=== PATIENT | male | born 1980 | race Caucasian/White ===

== ENCOUNTER → 2017-09-03 09:41 | Outpatient (CLI) | payer OTHER, SELFPAY ==
[2017-09-03 12:29] LABS: ALB/GLOB Ratio 0.9 RATIO (0.9-2.4); AST(SGOT) 13 U/L (15-37); Alanine Aminotransfer ALT/SGPT 42 U/L (16-61); Albumin, Serum 3.6 g/dL (3.2-5.0); Alkaline Phosphatase 89 U/L (45-117); Anion Gap 8 (5-15); BUN 16 mg/dL (7-18); BUN/Creat Ratio 15.7 RATIO (10-20); Calcium,Total 9.1 mg/dL (8.5-10.1); Chloride 100 mmol/L (98-107); Cholesterol 106 mg/dL (200); Creatinine, Serum 1.02 mg/dL (0.70-1.30); EST Glomerular Filtration Rate 87 mL/min (>60); Est Glom Filt Rate - Afr Amer 105 mL/min (>60); Globulin 3.9 g/dL (2.2-4.2); Glucose 157 mg/dL (74-106); High Density Lipoprotein 41 mg/dL; Potassium 4.4 mmol/L (3.5-5.1); Protein, Total 7.5 g/dL (6.4-8.2); Sodium Level 138 mmol/L (136-145); Thyroid Stim Hormone (TSH) 0.45 uIU/mL (0.358-3.74); Triglycerides 90 mg/dL; Very Low Density Lipoprotein 18 mg/dL (5-40)
== END ==
PROVIDERS: Family Provider Family Medicine; PCP Family Medicine; Visit Provider Family Medicine
DX: E11.9 Type 2 diabetes mellitus without complications (principal)
CPT/HCPCS: 36415; 80053; 80061; 84403; 84443

== ENCOUNTER → 2018-03-18 09:38 | Outpatient (CLI) | payer OTHER, SELFPAY ==
[2018-03-18 12:04] LABS: AST(SGOT) 13 U/L (15-37); Alanine Aminotransfer ALT/SGPT 42 U/L (16-61); Albumin, Serum 3.7 g/dL (3.2-5.0); Alkaline Phosphatase 93 U/L (45-117); Anion Gap 11 (5-15); BUN 15 mg/dL (7-18); Chloride 99 mmol/L (98-107); Cholesterol 120 mg/dL (200); EST Glomerular Filtration Rate 89 mL/min (>60); Est Glom Filt Rate - Afr Amer 107 mL/min (>60); Globulin 3.7 g/dL (2.2-4.2); Glucose 174 mg/dL (74-106); High Density Lipoprotein 41 mg/dL; Potassium 4.1 mmol/L (3.5-5.1); Protein, Total 7.4 g/dL (6.4-8.2); Sodium Level 137 mmol/L (136-145); Triglycerides 111 mg/dL; Very Low Density Lipoprotein 22 mg/dL (5-40)
== END ==
PROVIDERS: Family Provider Family Medicine; PCP Family Medicine; Visit Provider Family Medicine
DX: E11.9 Type 2 diabetes mellitus without complications (principal)
CPT/HCPCS: 36415; 80053; 80061

== ENCOUNTER → 2018-11-13 | Outpatient (CLI) | payer OTHER, SELFPAY ==
[2018-11-13 12:54] LABS: AST(SGOT) 10 U/L (15-37); Alanine Aminotransfer ALT/SGPT 38 U/L (16-61); Albumin, Serum 3.9 g/dL (3.2-5.0); Alkaline Phosphatase 84 U/L (45-117); Anion Gap 3 (5-15); BUN 13 mg/dL (7-18); BUN/Creat Ratio 12.5 RATIO (10-20); Calcium,Total 9.1 mg/dL (8.5-10.1); Chloride 103 mmol/L (98-107); Creatinine, Serum 1.04 mg/dL (0.70-1.30); EST Glomerular Filtration Rate 84 mL/min (>60); Est Glom Filt Rate - Afr Amer 102 mL/min (>60); Globulin 3.8 g/dL (2.2-4.2); Glucose 126 mg/dL (74-106); Potassium 4.1 mmol/L (3.5-5.1); Protein, Total 7.7 g/dL (6.4-8.2); Sodium Level 139 mmol/L (136-145); Thyroid Stim Hormone (TSH) 0.69 uIU/mL (0.358-3.74)
== END | disposition home or self-care (01) ==
PROVIDERS: Family Provider Family Medicine; PCP Family Medicine; Referring Provider Family Medicine; Visit Provider Family Medicine
DX: E11.9 Type 2 diabetes mellitus without complications (principal)
CPT/HCPCS: 36415; 80053; 84443

== ENCOUNTER 2019-02-21 17:07 | Emergency (ER) | payer OTHER, SELFPAY ==
[2019-02-21 17:07] VITALS: BP 128/64; PULSE 91; RESP 15; TEMP 36.6; O2SAT 99; BMI 49.8
--- NOTE | 2019-02-21 17:39 | ED.DCSUM_ITS ---
- ER Visit Summary Date of Service: 02/21/19 Chief Complaint: Right lower extremity pain History of Present Illness: The patient is a 38 M presenting with right lower extremity pain. Patient states he slipped in the mud and fell. He states his leg bent backwards. He has been able to ambulate. He did not hit his head or lose consciousness. Complains of pain in his right hamstring. He did not take any medication prior to arrival. Denies other injuries. Physical Examination: Vitals are stable. Patient is afebrile. Alert no acute distress. HEENT exam is unremarkable. Neck is nontender Lungs are clear and equal bilaterally. Heart is regular rate and rhythm. Abdomen is soft nontender nondistended. Extremities right posterior lower extremity tenderness with active full range of motion. Normal distal pulses. Skin is warm and dry. No focal neurologic deficit. Remainder of exam is unremarkable. Emergency Department Course and Treatment: Patient was given Toradol IM. Xray right femur shows normal x-ray examination of the femur. Patient is given prescription for Flexeril and Naprosyn. Advised to follow-up with primary care physician. Advised return to ED for worsening complaints. Disposition: Discharge home Impression: Right hamstring strain This note was generated with [employer] dictation software. It may contain incorrect words, spelling, and punctuation that were not noted in review of the chart prior to signing ED Disposition - Plan for ED Patient: Referrals: Magdi Trevino MD [Primary Care Provider] -
[2019-02-21] MEDS: Ketorolac 60 MG/2 ML Vial IM (17:47)
--- NOTE | 2019-02-21 17:50 | RAD_ITS ---
STUDY: X-RAY - RIGHT FEMUR REASON FOR STUDY: Male, 38 years old. Leg pain TECHNIQUE: 4 view(s) of the femur. COMPARISON: None. FINDINGS: Normal visualized femur. Normal visualized soft tissue structure. RAD/Femur Min 2 Views IMPRESSION: Normal x-ray examination of the femur. Electronically Signed: Darius Darling DO at 18:16 EST Tel , Service support ,
--- NOTE | 2019-02-21 18:23 | ED.DEP ---
ED Disposition - Plan for ED Patient: Instructions: MUSCLE STRAIN, Extremity Prescriptions: cycloBENZAPRine HCl [Flexeril] 10 mg PO TID PRN #20 tablet PRN Reason: Muscle Spasm Naproxen [Naprosyn] 500 mg PO BID PRN #20 tablet Referrals: Magdi Trevino MD [Primary Care Provider] -
[2019-02-21 18:32] VITALS: BP 126/82; PULSE 96; RESP 16; O2SAT 97
== END 2019-02-21 18:34 | disposition home or self-care (01) ==
LOC: ED 18:05
PROVIDERS: Emergency Provider Emergency Medicine; Family Provider Family Medicine; PCP Family Medicine
DX: S76.311A Strain of muscle, fascia and tendon of the posterior muscle group at thigh level, right thigh, initial encounter (principal); W01.0XXA Fall on same level from slipping, tripping and stumbling without subsequent striking against object, initial encounter; Y93.9 Activity, unspecified; Y92.9 Unspecified place or not applicable; I10 Essential (primary) hypertension; E11.9 Type 2 diabetes mellitus without complications; Z79.84 Long term (current) use of oral hypoglycemic drugs; Z79.899 Other long term (current) drug therapy
CPT/HCPCS: 73552; 96372; 99283

== ENCOUNTER → 2019-06-25 10:44 | Outpatient (CLI) | payer OTHER, SELFPAY ==
[2019-06-25 12:41] LABS: ALB/GLOB Ratio 1.1 RATIO (0.9-2.4); AST(SGOT) 18 U/L (15-37); Alanine Aminotransfer ALT/SGPT 48 U/L (16-61); Albumin, Serum 3.7 g/dL (3.2-5.0); Alkaline Phosphatase 87 U/L (45-117); Anion Gap 3 (5-15); BUN 15 mg/dL (7-18); BUN/Creat Ratio 15.2 RATIO (10-20); Calcium,Total 9.2 mg/dL (8.5-10.1); Chloride 101 mmol/L (98-107); Cholesterol 123 mg/dL (200); Creatinine, Serum 0.99 mg/dL (0.70-1.30); EST Glomerular Filtration Rate 89 mL/min (>60); Est Glom Filt Rate - Afr Amer 108 mL/min (>60); Globulin 3.5 g/dL (2.2-4.2); Glucose 146 mg/dL (74-106); High Density Lipoprotein 45 mg/dL; Potassium 4.1 mmol/L (3.5-5.1); Protein, Total 7.2 g/dL (6.4-8.2); Sodium Level 137 mmol/L (136-145); Triglycerides 63 mg/dL; Very Low Density Lipoprotein 13 mg/dL (5-40)
== END ==
PROVIDERS: PCP Family Medicine; Referring Provider Family Medicine; Visit Provider Family Medicine
DX: E11.9 Type 2 diabetes mellitus without complications (principal)
CPT/HCPCS: 36415; 80053; 80061

== ENCOUNTER → 2020-04-28 10:46 | Outpatient (CLI) | payer OTHER, SELFPAY ==
[2020-04-28 13:16] LABS: ALB/GLOB Ratio 1.1 RATIO (0.9-2.4); AST(SGOT) 17 U/L (15-37); Alanine Aminotransfer ALT/SGPT 41 U/L (16-61); Albumin, Serum 3.9 g/dL (3.2-5.0); Alkaline Phosphatase 85 U/L (45-117); Anion Gap 4 (5-15); BUN 14 mg/dL (7-18); BUN/Creat Ratio 14.2 RATIO (10-20); Calcium,Total 9.4 mg/dL (8.5-10.1); Chloride 103 mmol/L (98-107); Cholesterol 132 mg/dL (200); Creatinine, Serum 0.99 mg/dL (0.70-1.30); EST Glomerular Filtration Rate 89 mL/min (>60); Est Glom Filt Rate - Afr Amer 107 mL/min (>60); Globulin 3.7 g/dL (2.2-4.2); Glucose 165 mg/dL (74-106); High Density Lipoprotein 49 mg/dL; Potassium 4.2 mmol/L (3.5-5.1); Protein, Total 7.6 g/dL (6.4-8.2); Sodium Level 137 mmol/L (136-145); Thyroid Stim Hormone (TSH) 0.57 uIU/mL (0.358-3.74); Triglycerides 70 mg/dL; Very Low Density Lipoprotein 14 mg/dL (5-40)
== END ==
PROVIDERS: PCP Family Medicine; Visit Provider Family Medicine
DX: E11.9 Type 2 diabetes mellitus without complications (principal)
CPT/HCPCS: 36415; 80053; 80061; 84403; 84443

== ENCOUNTER 2021-03-23 09:29 | Outpatient (CLI) | payer OTHER, SELFPAY ==
[2021-03-23 10:49] LABS: Anion Gap 6 (5-15); BUN 12 mg/dL (7-18); BUN/Creat Ratio 13.1 RATIO (10-20); Calcium,Total 9.2 mg/dL (8.5-10.1); Chloride 105 mmol/L (98-107); Cholesterol 118 mg/dL (200); Creatinine, Serum 0.92 mg/dL (0.70-1.30); EST Glomerular Filtration Rate 96 mL/min (>60); Est Glom Filt Rate - Afr Amer 117 mL/min (>60); Glucose 164 mg/dL (74-106); High Density Lipoprotein 48 mg/dL; Potassium 4.2 mmol/L (3.5-5.1); Sodium Level 139 mmol/L (136-145); Triglycerides 57 mg/dL; Very Low Density Lipoprotein 11 mg/dL (5-40)
== END 2021-03-23 23:59 | disposition short-term general hospital (02) ==
LOC: MFPLAB 09:30
PROVIDERS: PCP Family Medicine; Referring Provider Family Medicine; Visit Provider Family Medicine
DX: E11.9 Type 2 diabetes mellitus without complications (principal)
CPT/HCPCS: 36415; 80048; 80061